=== PATIENT | female | born 1950 | race Caucasian/White ===

== ENCOUNTER 2019-12-15 14:10 | Emergency (ER) | payer OTHER ==
[2019-12-15] MEDS ORDERED: DIPHTH,PERTUSS(ACELL),TET 0.5 ML DISP.SYRIN IM ONE ×2 (14:14→14:21)
[2019-12-15 14:20] VITALS: BP 125/82; PULSE 87; TEMP 98.9; BMI 22.4
--- OUTSIDE RECORDS SUMMARY | 2019-12-15 14:20 | XMS ---
:1950 Author Organization [facility] Care Team Providers Name Role Phone PriscillaHay sandoval Unavailable Fader, M Unavailable Fader, M Unavailable Fader, M Unavailable Fader, M Unavailable Fader, M Unavailable Fader, M Unavailable Fader, M Unavailable Fader, M Unavailable Fader, M Unavailable Fader, M Unavailable Fader, M Unavailable Fader, M Unavailable Fader, M Unavailable Re-disclosure Warning The records that you are about to access may contain information from federally- assisted alcohol or drug abuse programs. If such information is present, then the following federally mandated warning applies: This information has been disclosed to you from records protected by federal confidentiality rules (42 CFR part 2). The federal rules prohibit you from making any further disclosure of this information unless further disclosure is expressly permitted by the written consent of the person to whom it pertains or as otherwise permitted by 42 CFR part 2. A general authorization for the release of medical or other information is NOT sufficient for this purpose. The Federal rules restrict any use of the information to criminally investigate or prosecute any alcohol or drug abuse patient.The records that you are about to access may contain highly sensitive health information, the redisclosure of which is protected by Article 27-F of the [facility] Public Health law. If you continue you may haveaccess to information: Regarding HIV / AIDS; Provided by facilities licensed or operated by the [facility] Office of Mental Health; or Provided by the [facility] Office for People With Developmental Disabilities. If such information is present, then the following [facility] mandated warning applies: This information has been disclosed to you from confidential records which are protected by state law. State law prohibits you from making any further disclosure of this information without the specific written consent of the person to whom it pertains, or as otherwise permitted by law. Any unauthorized further disclosure in violation of state law may result in a fine or senior living sentence or both. A general authorization for the release of medical or other information is NOT sufficient authorization for further disclosure. Allergies and Adverse Reactions Type Description Substance Reaction Status Data Source(s ) Drug allergy PENICILLIN Penicillin Active MEDGEN ([facility], ) Encounters Encounter Providers Location Date Indications Data Source(s ) Attender: Hay 12/04[facility]2019 [facility], ) Office Attender: Hay Todd 12/04/2019 12:00:00 AM E DT MEDGEN ([facility] [place], ) Office Attender: Hay Todd 12/04/2019 12:00:00 AM E DT MEDGEN ([facility]) Office Immunizations Vaccine Date Status Description Data Source(s) Shingrix 07/08/2018 completed [facility]. This is one of two 01/04/2017 completed MED GEN ([facility] codes replacing CVX 15, 12:00:00 AM EDT [facility]) which is being retired. Pneumococcal conjugate 12/13/2016 completed MEDGE N ([facility] PCV 13 12:00:00 AM [facility], ) Medications Medication Brand Start Product Dose Route Administrative Pharmacy [facility] Indications Reaction Description Data Name Date Form Instructions Instructions Source(s) atorvastati ATORVA 10/24/ TABLET 90 complet ATOR VASTATIN MEDGEN (St n 40 MG STATIN 2019 ed [facility] Oral Tablet :63350 12:00: Medi elizabeth, ATORVASTATI 1 00 AM PC) N:[id number] EDT Vitamin B CYANOC 10/02/ SOLUTION 1 complet CYAN OCOBALAM MEDGEN (St 12 1 MG/ML OBALAM 2019 ed IN [facility] Injectable IN:309 12:00: Medic al, Solution 594 00 AM PC) CYANOCOBALA EDT MIN:[id number] Zolpidem ZOLPID 09/11/ TABLET 30 complet ZOLPIDE M MEDGEN (St tartrate 5 EM:854 2019 ed [facility] MG Oral 876 12:00: Medical, Tablet 00 AM PC) ZOLPIDEM:85 EDT 4876 Lisinopril LISINO 07/30/ TABLET 90 complet LISIN OPRIL MEDGEN (St 10 MG Oral PRIL:3 2019 ed [facility] Tablet 51591 12:00: Medical, LISINOPRIL: 00 AM PC) [id number] EDT Famotidine FAMOTI 07/30/ TABLET 90 complet FAMOT IDINE MED[facility] (St 40 MG Oral DINE:2 2019 ed [facility] Tablet 44586 12:00: Medical, FAMOTIDINE: 00 AM PC) [id number] EDT Lorazepam LORAZE 01/31/ TABLET 5 complet LORAZE JOSHUA MEDGEN (St 0.5 MG Oral JOSHUA:19 2018 ed [facility] Tablet 7900 12:00: Medical, LORAZEPAM:1 00 AM PC) 39087 EST Cholecalcif VITAMI 07/19/ TABLET 30 complet VERONA MIN D3 MEDGEN (St philipp 2000 N 2018 ed [facility] UNT Oral D3:801 12:00: Medical , Tablet 663 00 AM PC) VITAMIN EDT D3:595945 Aspirin 81 ASPIRI 07/19/ DELAYED 30 complet ASPI RIN MED[facility] (St MG Delayed N 2018 RELEASE ed ADULT LOW J [facility] Release ADULT 12:00: TABLET STRENGTH Med ical, Oral Tablet LOW 00 AM PC) ASPIRIN STRENG EDT ADULT LOW TH:308 STRENGTH:30 416 8416 Simethicone GAS-X: 05/ TABLET, 30 complet GAS -X MEDGEN (St 80 MG 178503 2127 CHEWABLE ed [facility] Chewable 12:00: Medical, Tablet 00 AM PC) [Gas-X] EDT GAS-X:42703 3 GLUCOSAMINE 07/19/ CAPSULE 30 complet GLUCO SAMINE MEDGEN (St CHONDROITIN 2018 ed CHONDROITIN J [facility] :[id number] 12:00: Medical, 00 AM PC) EDT Insurance Providers Payer name Policy type Policy ID Covered Covered republican's Policy P geno / Coverage republican ID relationship to [facility] or[facility] type riojas OWEN [id number] 200 EXCHANGE 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 RESIDUAL DEFICITS E78.5 Hyperlipidemia, HYPERLIPIDEMIA, Problem 01/24/2018 MEDG EN (St unspecified UNSPECIFIED 12:00:00 AM LOGAN [facility], ) I10 Essential ESSENTIAL Problem 01/24/2018 MEDGEN (St (primary) (PRIMARY) 12:00:00 AM LOGAN Garcías hypertension HYPERTENSION Medical, P C) Surgeries/Procedures Procedure Description Date Indications Data Source(s) Documentation of current 12/04/2019 MED GEN ([facility] medications (procedure) 12:00:00 AM EDT Dwayne ferreira ) Documentation of current 12/04/2019 MED GEN ([facility] medications (procedure) 12:00:00 AM EDT Dwayne ferreira ) OFFICE OUTPATIENT VISIT 12/04/2019 MEDG EN ([facility] 15 MINUTES 12:00:00 AM [facility], ) Documentation of current 07/31/2019 MED GEN ([facility] medications (procedure) 12:00:00 AM EDT Dwayne ferreira PC) Documentation of current 07/31/2019 MED GEN ([facility] medications (procedure) 12:00:00 AM EDT edical, PC) OFFICE OUTPATIENT VISIT 07/31/2019 MEDG EN ([facility] 15 MINUTES 12:00:00 AM JULIO Oglesby) Documentation of current 01/31/2019 MED GEN ([facility] medications (procedure) 12:00:00 AM JULIO Knight) Documentation of current 01/31/2019 MED GEN ([facility] medications (procedure) 12:00:00 AM JULIO Knight) Documentation of current 01/31/2019 MED GEN ([facility] medications (procedure) 12:00:00 AM JULIO Knight) Documentation of current 01/31/2019 MED GEN ([facility] medications (procedure) 12:00:00 AM JULIO Knight) Documentation of current 01/31/2019 MED GEN ([facility] medications (procedure) 12:00:00 AM JULIO Knight) Documentation of current 01/31/2019 MED GEN ([facility] medications (procedure) 12:00:00 AM JULIO Knight) Documentation of current 01/31/2019 MED GEN ([facility] medications (procedure) 12:00:00 AM LOGAN ferreira, JULIO) Documentation of current 01/31/2019 MED GEN ([facility] medications (procedure) 12:00:00 AM JULIO Knight) Documentation of current 01/31/2019 MED GEN ([facility] medications (procedure) 12:00:00 AM JULIO Knight) Documentation of current 01/31/2019 MED GEN ([facility] medications (procedure) 12:00:00 AM JULIO Knight) Documentation of current 01/31/2019 MED GEN ([facility] medications (procedure) 12:00:00 AM LOGAN ferreira, JULIO) ECG ROUTINE ECG W/LEAST 01/31/2019 MEDG EN ([facility] 12 LDS W/I&R 12:00:00 AM LOGAN Petty PC) Documentation of current 07/11/2018 MED GEN ([facility] medications (procedure) 12:00:00 AM JULIO Manley) Documentation of current 07/11/2018 MED GEN ([facility] medications (procedure) 12:00:00 AM JULIO Manley) Documentation of current 07/11/2018 MED GEN ([facility] medications (procedure) 12:00:00 AM EDT cesarical, ) OFFICE OUTPATIENT VISIT 07/11/2018 MEDG EN ([facility] 15 MINUTES 12:00:00 AM ED Medical, ) Documentation of current 01/24/2018 MED GEN ([facility] medications (procedure) 12:00:00 AM EST cesarical, PC) Documentation of current 01/24/2018 MED GEN ([facility] medications (procedure) 12:00:00 AM EST cesarical, PC) Documentation of current 01/24/2018 MED GEN ([facility] medications (procedure) 12:00:00 AM EST cesarical, PC) Documentation of current 01/24/2018 MED GEN ([facility] medications (procedure) 12:00:00 AM EST jhon, PC) ECG ROUTINE ECG W/LEAST 01/24/2018 MEDG EN ([facility] 12 LDS W/I&R 12:00:00 AM [facility], ) Documentation of current 07/19/2017 MED GEN ([facility] medications (procedure) 12:00:00 AM EDT jhon, PC) Documentation of current 07/19/2017 MED GEN ([facility] medications (procedure) 12:00:00 AM EDT cesarical, PC) Documentation of current 07/19/2017 MED GEN ([facility] medications (procedure) 12:00:00 AM EDT cesarical, PC) Documentation of current 07/19/2017 MED GEN ([facility] medications (procedure) 12:00:00 AM EDT cesarical, PC) Documentation of current 07/19/2017 MED GEN ([facility] medications (procedure) 12:00:00 AM EDT cesarical, PC) Documentation of current 07/19/2017 MED GEN ([facility] medications (procedure) 12:00:00 AM EDT edical, PC) Documentation of current 07/19/2017 MED GEN ([facility] medications (procedure) 12:00:00 AM EDT cesarical, PC) Documentation of current 07/19/2017 MED GEN ([facility] medications (procedure) 12:00:00 AM EDT cesarical, PC) Documentation of current 07/19/2017 MED GEN ([facility] medications (procedure) 12:00:00 AM EDT Dwayne ferreira, ) OFFICE OUTPATIENT VISIT 07/19/2017 MEDG EN ([facility] 15 MINUTES 12:00:00 AM EDT Medical, ) Mammogram (procedure) 05/19/2017 MEDGEN ([facility] 12:00:00 AM [facility] Medical, ) Colonoscopy (procedure) 12/20/2015 MEDG EN ([facility] 12:00:00 AM EDT Medical, ) Social History Code Duration Value Status Description Data Source(s ) Smoking 12/04/2019 0-1 #of sex completed 0-1 #of sex MEDGEN (St 12:00:00 AM partners in 12 partners in 12 [facility], T months 0-1 Type of months 0-1 Type o f ) Sex Partners Men Sex Partners Men Types of Sexual Types of Sexual Contact Penis Contact Penis Protection against Protection agains t STD No Diagnosed STD No Diagnosed with STD No with STD No Smoking 12/04/2019 Tobacco Status: completed Tobacco Status: MEDG EN (St 12:00:00 AM Never smoker Never smoker Randy Ia pablo, EDT Marital Status Marital Status ) Household Household Members 4 Lives Members 4 Lives Independently Yes Independently Yes Number of Children Number of Childre n 2 Occupation editor trade journal 2 Occupation [employer]yn [employer] Diet and firm Diet and Exercise Well Exercise Well Balanced Diet Daily Balanced Diet Da myesha or Most days High or Most days High Fat Intake 2 Times Fat Intake 2 Time s Daily Fru... Daily Fruits & Vegetables Intake 2-4 Calcium Intake 2-3 In The Past Year... Remained Stable Exercise Frequency 1-2 times a week (walks, bikes on weekends) Nutritional Counseling Yes Exercise Counseling Yes Alcohol Use Social Mental History Normal Sexual History Currently sexually active Yes Sexually active in the past Yes Sex Partners in Recent Months Smoking 12/04/2019 Unknown if ever completed Unknown if ever MEDG EN (St 12:00:00 AM smoked smoked [facility], EDT ) Vital Signs ID Date Data Source UNK Name Value Range Interpretation Code Description Data Source(s) Heart rate 74 /min 74 /min [facility] ([facility] , ) Respiratory rate 14 /min 14 /min MEDGEN ( [facility] , ) Body temperature 97.5 F 97.5 F MEDGEN ( [facility]) Inhaled oxygen 97 % 97 % MEDGEN ([facility]) Body mass index 22.6 kg/m2 22.6 kg/m2 [facility] ([facility] Diastolic blood 78 mm[Hg] 78 mm[Hg] MEDGEN ([facility]) Systolic blood 115 mm[Hg] 115 mm[Hg] MEDGEN ([facility]) Body weight 133 lb 133 lb MEDGEN ([facility]) Body height 64.25 in 64.25 in MEDGEN ([facility]) Heart rate 78 /min 78 /min MED[facility] ([facility]) Respiratory rate 15 /min 15 /min MEDGEN ( [facility]) Body temperature 98.1 F 98.1 F MEDGEN ( [facility]) Inhaled oxygen 97 % 97 % MEDGEN ([facility]) Body mass index 22.6 kg/m2 22.6 kg/m2 MEDGEN ([facility]) Diastolic blood 68 mm[Hg] 68 mm[Hg] MEDGEN ([facility]) Systolic blood 104 mm[Hg] 104 mm[Hg] MEDGEN ([facility]) Body weight 133 lb 133 lb MEDGEN ([facility]) Body height 64.25 in 64.25 in MEDGEN ([facility]) Heart rate 64 /min 64 /min MED[facility] ([facility]) Respiratory rate 15 /min 15 /min MEDGEN ( [facility]) Body mass index 23.5 kg/m2 23.5 kg/m2 [facility] ([facility]) Diastolic blood 67 mm[Hg] 67 mm[Hg] MEDGEN (S [facility]) Systolic blood 102 mm[Hg] 102 mm[Hg] MEDGEN ([facility]) Body weight 139 lb 139 lb MEDGEN ([facility]) Body height 64.5 in 64.5 in MEDGEN ([facility]) Heart rate 74 /min 74 /min MED[facility] ([facility]) Respiratory rate 14 /min 14 /min MEDGEN ( [facility]) Body temperature 98.2 F 98.2 F [facility] ( [facility]) Body mass index 23.8 kg/m2 23.8 kg/m2 [facility]GEN ([facility]) Diastolic blood 65 mm[Hg] 65 mm[Hg] MEDGEN (S t pressure [facility]) Systolic blood 129 mm[Hg] 129 mm[Hg] MEDGEN ([facility]) Body weight 141 lb 141 lb [facility] ([facility]) Body height 64.5 in 64.5 in [facility] ([facility]) Heart rate 82 /min 82 /min MEDGEN ([facility]) Respiratory rate 14 /min 14 /min MEDGEN ( [facility]) Body mass index 23.2 kg/m2 23.2 kg/m2 MEDGEN (S [facility]) Diastolic blood 77 mm[Hg] 77 mm[Hg] MEDGEN (S t pressure [facility]) Systolic blood 112 mm[Hg] 112 mm[Hg] MEDGEN ([facility]) Body weight 137 lb 137 lb [facility] ([facility]) Body height 64.5 in 64.5 in [facility] ([facility])
--- NOTE | 2019-12-15 15:04 | PDOC ---
History of Present Illness - General Chief Complaint: Laceration Stated Complaint: CUT ON LEFT POINTER FINGER WITH SCREW History Source: Patient Exam Limitations: No Limitations - History of Present Illness Initial Comments: 12/15/19 14:55 69-year-old female history of hypertension high cholesterol here today status post puncture wound to her left index finger. Patient states she was carrying a bag of nails and one poke through the bag subsequently poked her in her finger she was not sure when her last tetanus was so she wanted to get up-to-date bleeding was controlled wound was small happened just today prior to arrival no other injury sustained Past History - Medical History Allergies/Adverse Reactions: Allergies Allergy/AdvReac Type Severity Reaction Status Date / Time Penicillins Allergy Mild Rash Verified 12/15/19 14:12 Home Medications: Ambulatory Orders Glucosam/Chond/Collagen/Hyalur [Glucosamine Chondroitin Cap] 1 each PO DAILY capsule 05/03/16 Zolpidem Tartrate 5 mg PO PRN tablet 05/03/16 Sulfamethoxazole/Trimethoprim [Bactrim Ds Tablet] 1 each PO BID 3 Days #6 tablet 12/15/19 COPD: No HTN: Yes Hypercholesterolemia: Yes - Reproductive History Is Patient Now?: No - Immunization History Immunization Up to Date: Yes - Psycho-Social/Smoking History Smoking History: Never smoked Have you smoked in the past 12 months: No Number of Cigarettes Smoked Daily: 0 Information on smoking cessation initiated: No - Substance Abuse Hx (Audit-C & DAST Scrn) How often the patient has a drink containing alcohol: Never Score: In Men: 4 or > Positive; In Women: 3 or > Positive: 0 Screen Result (Pos requires Nsg. Audit-10AR): Negative In the last yr the pt used illegal drug/Rx for NonMed reason: No Score: Yes response is considered Positive: 0 Screen Result (Positive result requires Nsg. DAST-10): Negative Review of Systems - Review of Systems Constitutional: No: Chills, Diaphoresis, Fever HEENTM: No: Eye Pain, Tearing Respiratory: No: Cough, Orthopnea, Shortness of Breath Cardiac (ROS): No: Chest Pain, Edema Integumentary: No: Erythema, Flushing, Other Neurological: No: Headache, Numbness, Paresthesia All Other Systems: Reviewed and Negative *Physical Exam - Vital Signs Last Vital Signs Temp Pulse Resp BP Pulse Ox 98.9 F 87 18 125/82 99 12/15/19 14:12 12/15/19 14:12 12/15/19 14:12 12/15/19 14:12 12/15/19 14:12 - Physical Exam 12/15/19 15:04 awake alert lungs clear bilat heart rrr no mrg. skin left index finger, small 1 mm puncture wound. distally n/v intact. no surrounding erythema. no swelling. no active bleedign. ED Treatment Course - Medications Given in the ED: ED Medications Discontinued Medications Generic Name Dose Route Start Last Admin Trade Name Joshua PRN Reason Stop Dose Admin Diphtheria/Tetanus/Acell Pertussis 0.5 ml 12/15/19 14:14 12/15/19 14:22 Boostrix - IM 12/15/19 14:15 0.5 ml .ONCE ONE Administration Medical Decision Making - Medical Decision Making 12/15/19 15:05 puncture wound left index finger. plan tetanus. bactrim 3 days. soaks bacitracin. Discharge - Discharge Information Problems reviewed: Yes Clinical Impression/Diagnosis: Puncture Condition: Improved Disposition: HOME - Admission No - Additional Discharge Information Prescriptions: Sulfamethoxazole/Trimethoprim [Bactrim Ds Tablet] 1 each PO BID 3 Days #6 tablet - Follow up/Referral Referrals: Hay Todd MD [Primary Care Provider] - - Patient Discharge Instructions Patient Printed Discharge Instructions: DI for Puncture Wound Additional Instructions: you Have a small puncture wound to your left index finger. You should soak the finger twice daily in warm soapy water and apply bacitracin or any triple antibiotic cream topically twice daily. You should take Bactrim and antibiotic starting tomorrow twice daily for 3 days. You have been given your dose for today here in the ED for any pain you can take ibuprofen 400 mg every 8 hours as needed. Return for any redness swelling worsening symptoms or any concerns. You were given a tetanus shot today and will be up-to-date - Post Discharge Activity
[2019-12-15] MEDS ORDERED: SULFAMETHOXAZOLE/TRIMETHOPRIM 800MG/160MG D.S. TABLET PO ONE (15:12)
[2019-12-15] MEDS ORDERED: SULFAMETHOXAZOLE/TRIMETHOPRIM 800MG/160MG D.S. TABLET ONE (15:15)
== END 2019-12-15 15:22 | disposition home or self-care (01) ==
LOC: FER 14:10
PROC: 3E0234Z Introduction of Serum, Toxoid and Vaccine into Muscle, Percutaneous Approach (ICD-10-PCS; principal; 2019-12-15)
DX: S61.231A Puncture wound without foreign body of left index finger without damage to nail, initial encounter (principal)
CPT/HCPCS: 90715; 99284-25

== ENCOUNTER 2020-05-24 02:09 | Emergency (ER) | payer OTHER ==
[2020-05-24] MEDS ORDERED: ASPIRIN 81 MG CHEWABLE TABLETS PO ONE (02:20)
[2020-05-24] MEDS ORDERED: MAG HYDROX/AL HYDROX/SIMETH 30 ML UNIT-DOSE CUP PO ONE (02:20)
[2020-05-24 02:34] VITALS: BP 136/91; PULSE 78; TEMP 97.9; BMI 23.1
[2020-05-24] MEDS ORDERED: ASPIRIN 81 MG CHEWABLE TABLETS ONE (02:36)
[2020-05-24] MEDS ORDERED: MAG HYDROX/AL HYDROX/SIMETH 30 ML UNIT-DOSE CUP ONE (02:36)
[2020-05-24 03:21] LABS: BASO % 0.6 % (0-2.0); EOS % 4.1 % (0-4.5); HEMATOCRIT 37.9 % (32.4-45.2); LYMPH % 39.1 % (8-40); MCH 33.6 pg (25.7-33.7); MCHC 34.3 g/dl (32.0-36.0); MEAN CELL VOLUME 97.8 fl (80-96); MEAN PLT VOLUME 8.5 fl (7.5-11.1); MONO % 8.7 % (3.8-10.2); NEUT % 47.5 % (42.8-82.8); PLATELET COUNT 221 K/MM3 (134-434); RBC 3.88 M/mm3 (3.60-5.2); RDW 13.3 % (11.6-15.6); WHITE BLOOD COUNT 6.8 K/mm3 (4.0-10.0)
[2020-05-24 03:39] LABS: CHLORIDE 107 mmol/L (98-107); SODIUM 141 mmol/L (136-145)
[2020-05-24 03:41] LABS: ALBUMIN 3.9 g/dl (3.4-5.0); ANION GAP 6 MMOL/L (8-16); BLOOD UREA NITROGEN 22.8 mg/dL (7-18); CALCIUM 8.9 mg/dL (8.5-10.1); CO2 27 mmol/L (21-32); GLUCOSE,RANDOM 97 mg/dL (74-106)
[2020-05-24 03:44] LABS: CREATININE 0.7 mg/dL (0.55-1.3); SGPT/ALT 45 U/L (13-61)
[2020-05-24 03:45] LABS: SGOT/AST 23 U/L (15-37)
[2020-05-24 03:46] LABS: BILIRUBIN,TOTAL 0.5 mg/dL (0.2-1); TOT PROT 7.2 g/dl (6.4-8.2)
[2020-05-24 03:47] LABS: ALK PHOS 92 U/L (45-117)
== END 2020-05-24 07:04 | disposition home or self-care (01) ==
LOC: FER 02:09
DX: R07.89 Other chest pain (principal)
CPT/HCPCS: 36415; 71046-TC-FY; 80053; 82550; 84484; 85025; 85379; 93005; 99284-25

== ENCOUNTER 2023-06-14 17:54 | Emergency (ER) | payer OTHER ==
[2023-06-14 19:00] VITALS: BP 147/92; PULSE 71; RESP 16; TEMP 97.9; BMI 24.0
== END 2023-06-14 22:39 | disposition home or self-care (01) ==
LOC: FER 17:54
DX: S00.03XA Contusion of scalp, initial encounter (principal); W01.198A Fall on same level from slipping, tripping and stumbling with subsequent striking against other object, initial encounter
CPT/HCPCS: 70450-TC; 72125-TC; 99284-25

== ENCOUNTER 2024-01-23 05:26 | Day surgery (SDC) | payer OTHER ==
[2024-01-19 16:26] VITALS: BMI 25.4
[2024-01-23 11:20] VITALS: TEMP 98
[2024-01-23 12:05] VITALS: BP 119/73; PULSE 81; RESP 17
== END 2024-01-23 12:05 | disposition home or self-care (01) ==
LOC: JASU-ENDO 05:26
PROVIDERS: ATTEND Internal Medicine Gastroenterology
PROC: 0DBP8ZX Excision of Rectum, Via Natural or Artificial Opening Endoscopic, Diagnostic (ICD-10-PCS; 2024-01-23)
PROC: 0DBK8ZX Excision of Ascending Colon, Via Natural or Artificial Opening Endoscopic, Diagnostic (ICD-10-PCS; principal; 2024-01-23 11:00)
DX: Z12.11 Encounter for screening for malignant neoplasm of colon (principal); D12.8 Benign neoplasm of rectum; K63.5 Polyp of colon; K64.8 Other hemorrhoids; K57.30 Diverticulosis of large intestine without perforation or abscess without bleeding; Z86.0100 Personal history of colon polyps, unspecified; Z80.0 Family history of malignant neoplasm of digestive organs
CPT/HCPCS: 88305-TC